=== PATIENT | female | born 1960 ===

== ENCOUNTER 2020-07-27 15:21 | Emergency (ER) | payer SELFPAY ==
[2020-07-27 16:47] VITALS: BP 168/89
[2020-07-27] MEDS ORDERED: ACETAMINOPHEN 325 MG TAB ONE (17:42)
[2020-07-27] MEDS ORDERED: ACETAMINOPHEN 325 MG TAB PO ONE (17:43)
--- NOTE | 2020-07-27 17:43 | Emergency Department Report ---
Blank Doc - Documentation Documentation: 60-year-old female that presents with headache and neck pain s/p trip and fall. Denies any LOC. This initial assessment/diagnostic orders/clinical plan/treatment(s) is/are subject to change based on patient's health status, clinical progression and re- assessment by fellow clinical providers in the ED. Further treatment and workup at subsequent clinical providers discretion. Patient/guardians urged not to elope from the ED as their condition may be serious if not clinically assessed and managed. Initial orders include: 1- Patient sent to [facility] for further evaluation and treatment 2- ct head/neck 3- cervical collar
--- NOTE | 2020-07-27 18:24 | Cat Scan Report ---
CT head/brain wo con, CT cervical spine wo con INDICATION: pain s/p fall. TECHNIQUE: CT head and cervical spine without contrast. All CT scans at this location are performed u sing CT dose reduction for ALARA by means of automated exposure control. COMPARISON: None. FINDINGS: HEAD: Intracranial: Hendricks-white matter differentiation is maintained. No intracranial hemorrhage. No extra a xial collection.. No hydrocephalus. No herniation. Sinuses: Paranasal sinuses and mastoid air cells are essentially clear. Orbits: Globes are intact Calvarium: No acute fracture. CERVICAL: Alignment: Normal alignment. Vertebrae: No fracture. Vertebral body heights are preserved. C1 and C2 are congruent. Atlantooccipi moses joint is maintained. Small lucent lesion involving the C2 spinous process is most likely benign a nd this is most consistent with a hemangioma given the Hounsfield units Spondylolysis: No significant spondylosis. Soft tissues: No prevertebral soft tissue thickening. Additional findings: No significant additional findings. IMPRESSION: 1. No acute intracranial abnormality. 2.No cervical spine fracture. Signer Name: Brandt Campos MD Signed: 07/27/2020 6:20 PM Workstation Name: [id number]
--- NOTE | 2020-07-28 11:41 | Emergency Department Report ---
ED Head Trauma HPI - General Chief complaint: Head Injury Stated complaint: YESTERDAY FELL/CONFUSED/HEAD PAIN Time Seen by Provider: 07/27/20 17:42 Source: patient Mode of arrival: Wheelchair Limitations: No Limitations - History of Present Illness Initial comments: The patient was evaluated in the emergency department for symptoms described in the history of present illness. He/she was evaluated in the context of the global COVID-19 pandemic, which necessitated consideration that the patient might be at risk for infection with the virus that causes COVID-19. Institutional protocols and algorithms that pertain to the evaluation of patients at risk for COVID-19 are in a state of rapid change based on information released by regulatory bodies including the CDC and federal and state organizations. These policies and algorithms were followed during the patient's care in the emergency department. Please note that these policies, procedures and recommendations changed on a rapid basis. 60-year-old -[place] female presents to the emergency room complaining of a headache headache and head injury status post fall 2 days ago. Patient states that she was playing tennis when she slipped and hit the the front of her head and it bounced. Patient states that the next day she got up with a headache and neck pain. Patient denies any nausea no vomiting no chest pain or shortness of breath. She denies any blurred vision no weaknesses no difficulty finding words. MD Complaint: head injury, head pain, fall Onset/Timin -: days(s) Mechanism of Injury: mechanical fall, sports related injury Loss of Consciousness: no Previous Trauma to this Area: No Place: outdoors - Related Data Allergies/Adverse reactions: Allergies Allergy/AdvReac Type Severity Reaction Status Date / Time No Known Allergies Allergy Unverified 07/27/20 16:24 ED Review of Systems ROS: Stated complaint: YESTERDAY FELL/CONFUSED/HEAD PAIN Other details as noted in HPI Comment: All other systems reviewed and negative ED Past Medical Hx - Past Medical History Previous Medical History?: No - Surgical History Past Surgical History?: No - Social History Smoking Status: Never Smoker Substance Use Type: None ED Physical Exam - General Limitations: No Limitations General appearance: alert, in no apparent distress - Head Head exam: Present: atraumatic, normocephalic - Eye Eye exam: Present: normal appearance - ENT ENT exam: Present: mucous membranes moist - Neck Neck exam: Present: normal inspection, full ROM - Respiratory Respiratory exam: Absent: accessory muscle use - Extremities Exam Extremities exam: Present: full ROM - Back Exam Back exam: Present: normal inspection, full ROM - Neurological Exam Neurological exam: Present: alert, oriented X3, normal gait - Expanded Neurological Exam Expanded Cranial nerves: EOM's Intact: Normal, Gag Reflex: Normal, Tongue Deviation: Normal, Nystagmus: Normal, Facial Sensation: Normal, Facial Palsy with Forehead Movement: Normal, Facial Palsy without Forehead Movement: Normal Cerebellar function: Finger to Nose: Normal, Heel to Stark: Normal, Romberg: Normal Upper motor neuron: Grant Neglect: Normal, Pronator Drift: Normal, Sensory Extinction: Normal Sensory exam: Upper Extremity Light Touch: Normal, Upper Extremity Pin Prick: Normal, Upper Extremity Temperature: Normal, UE 2 Point Discrimination: Normal, Lower Extremity Light Touch: Normal, Lower Extremity Pin Prick: Normal, Lower Extremity Temperature: Normal, LE 2 Point Discrimination: Normal Motor strength exam: RUE: 5, LUE: 5, RLE: 5, LLE: 5 Best Eye Response (Mateo): (4) open spontaneously Best Motor Response (Mateo): (6) obeys commands Best Verbal Response (Chama): (5) oriented Mateo Total: 15 - Psychiatric Psychiatric exam: Present: normal affect, normal mood - Skin Skin exam: Present: warm, dry, intact, normal color. Absent: rash ED Course Vital Signs 07/27/20 07/27/20 16:46 17:50 Temperature 98 F Pulse Rate 88 Respiratory 22 18 Rate Blood Pressure 168/89 [Right] O2 Sat by Pulse 95 Oximetry - Radiology Data Radiology results: report reviewed Referring Physician:FATEMEH GLORIAPatient Name:JARAD FRANCOPatient ID:[id number] of :[id number]:FemaleAccession:[id number] Date:[id number] Status:Finalized Findings [address] [address] Cat Scan Report Signed Patient: JARAD FRANCO MR#: [id number] : 1960 Acct:[id number] Age/Sex: 60 / F ADM Date: 07/27/20 Loc: ED Attending Dr: Ordering Physician: FATEMEH BABAYEV,GEOPHYSICS SCIENTIST Date of Service: 07/27/20 Procedure(s): CT head/brain wo con Accession Number(s): [id number] cc: FATEMEH GLORIA NP CT head/brain wo con, CT cervical spine wo con INDICATION: pain s/p fall. TECHNIQUE: CT head and cervical spine without contrast. All CT scans at this [facility] are performed using CT dose reduction for ALARA by means of automated exposure control. COMPARISON: None. FINDINGS: HEAD: Intracranial: Hendricks-white matter differentiation is maintained. No intracranial hemorrhage. No extra axial collection.. No hydrocephalus. No herniation. Sinuses: Paranasal sinuses and mastoid air cells are essentially clear. Orbits: Globes are intact Calvarium: No acute fracture. CERVICAL: Alignment: Normal alignment. Vertebrae: No fracture. Vertebral body heights are preserved. C1 and C2 are congruent. Atlantooccipital joint is maintained. Small lucent lesion involving the C2 spinous process is most likely benign and this is most consistent with a hemangioma given the Hounsfield units Spondylolysis: No significant spondylosis. Soft tissues: No prevertebral soft tissue thickening. Additional findings: No significant additional findings. IMPRESSION: 1. No acute intracranial abnormality. 2.No cervical spine fracture. Signer Name: Brandt Campos MD Signed: 07/27/2020 6:20 PM Workstation Name: [id number] Transcribed By: Dictated By: Brandt Campos MD Electronically Authenticated By: Brandt Campos MD Signed Date/Time: 07/27/201819 DD/ 14 TD/TT: Referring Physician:FATEMEH GLORIAPatient Name:JARAD FRANCOPatient ID:[id number] of :[id number]:FemaleAccession:[id number] Date:1581-07-92Mwfyhp Status:Finalized Findings [facility] [address] [place] [address] Cat Scan Report Signed Patient: JARAD FRANCO MR#: [id number] : 1960 Acct:[id number] Age/Sex: 60 / F ADM Date: 07/27/20 Loc: ED Attending Dr: Ordering Physician: FATEMEH GLORIA NP Date of Service: 07/27/20 Procedure(s): CT cervical spine wo con Accession Number(s): [id number] cc: FATEMEH GLORIA NP CT head/brain wo con, CT cervical spine wo con INDICATION: pain s/p fall. TECHNIQUE: CT head and cervical spine without contrast. All CT scans at this location are performed using CT dose reduction for ALARA by means of automated exposure control. COMPARISON: None. FINDINGS: HEAD: Intracranial: Hendricks-white matter differentiation is maintained. No intracranial hemorrhage. No extra axial collection.. No hydrocephalus. No herniation. Sinuses: Paranasal sinuses and mastoid air cells are essentially clear. Orbits: Globes are intact Calvarium: No acute fracture. CERVICAL: Alignment: Normal alignment. Vertebrae: No fracture. Vertebral body heights are preserved. C1 and C2 are congruent. Atlantooccipital joint is maintained. Small lucent lesion involving the C2 spinous process is most likely benign and this is most consistent with a hemangioma given the Hounsfield units Spondylolysis: No significant spondylosis. Soft tissues: No prevertebral soft tissue thickening. Additional findings: No significant additional findings. IMPRESSION: 1. No acute intracranial abnormality. 2.No cervical spine fracture. Signer Name: Brandt Campos MD Signed: 07/27/2020 6:20 PM Workstation Name: [id number] Transcribed By: CS Dictated By: Brandt Campos MD Electronically Authenticated By: Brandt Campos MD Signed Date/Time: 07/27/201819 DD/ 14 TD/TT: - Medical Decision Making 60-year-old -[place] female presents to the emergency room complaining of a headache headache and head injury status post fall 2 days ago. Patient states that she was playing tennis when she slipped and hit the the front of her head and it bounced. Patient states that the next day she got up with a headache and neck pain. Patient denies any nausea no vomiting no chest pain or shortness of breath. She denies any blurred vision no weaknesses no difficulty finding words. CT of head and neck are negative for any acute findings. Patient states that the Tylenol did help with her headache. Recommend Tylenol or ibuprofen for headache discussed with patient concussion precautions for the next 2 weeks. Patient is to follow-up with a neurologist or her primary care provider or return back to the emergency room if any worsening complaints. - NEXUS Criteria Focal neurological deficit present: No Midline spinal tenderness present: Yes Altered level of consciousness: No Intoxication present: No Distracting injury present: No NEXUS results: C-Spine cannot be cleared clinically by these results. Imaging is required. Critical care attestation.: If time is entered above; I have spent that time in minutes in the direct care of this critically ill patient, excluding procedure time. ED Disposition Clinical Impression: Head injury due to trauma, Fall Disposition: DC-01 TO HOME OR SELFCARE Is pt being admited?: No Does the pt Need Aspirin: No Condition: Stable Instructions: Concussion, Adult, Acem-gq-Ales, Head Injury, Adult Additional Instructions: Please follow-up concussion protocol. For the next 2 weeks. Follow-up with your primary care provider. Return back to the emergency room with any worsening symptoms. Tylenol or ibuprofen as needed for pain. Referrals: PRIMARY MD AZIZA [Primary Care Provider] - 3-5 Days FLORY MONTERO II, MD [Staff Physician] - 3-5 Days
[2020-07-28] MEDS ORDERED: ACETAMINOPHEN 325 MG TAB PO ONE (11:44)
== END 2020-07-27 18:00 | disposition home or self-care (01) ==
LOC: ED 15:21
DX: S09.90XA Unspecified injury of head, initial encounter (principal); W18.30XA Fall on same level, unspecified, initial encounter; Y93.89 Activity, other specified; Y92.312 Tennis court as the place of occurrence of the external cause; Y99.8 Other external cause status
CPT/HCPCS: 70450; 72125